=== PATIENT | male | born 2000 | race African-American/Black ===

== ENCOUNTER 2018-06-11 11:55 | Emergency (ER) | payer SELFPAY ==
--- NOTE | 2018-06-11 12:40 | RAD ---
RADIOGRAPH CHEST 1 VIEW: HISTORY: 17-year-old male with chest pain. FINDINGS: There are no air space densities, pulmonary edema, pneumothorax, or cardiomegaly. The lateral costop hrenic angles are sharp. IMPRESSION: No acute cardiopulmonary findings. doretha POS: [facility]
[2018-06-11 14:21] LABS: #Eosinphils 0.1 thou/uL (0.0-0.7); #Lymphocytes 2.4 thou/uL (1.20-3.40); #Monocytes 0.8 thou/uL (0.11-0.59); #Neutrophils 9.7 thou/uL (1.40-6.50); %Basophils 0.1 % (0.0-1.0); %Eosinophils 0.6 % (0.0-10.0); %Lymphocytes 18.6 % (28.0-48.0); %Neutrophils 74.6 % (31.0-61.0); Hemoglobin 16.9 g/dL (14.0-18.0); Mean Corpuscular Hemoglobin 30.3 pg (25.0-35.0); Mean Corpuscular Volume 89.1 fL (78.0-98.0); Platelet Count 298 thou/uL (130-400); RBC Distribution Width 11.7 % (11.5-14.5); Red Blood Cell (RBC) Count 5.56 mill/uL (4.00-5.20)
[2018-06-11 14:40] LABS: ALT (SGPT) 19 U/L (8-55); AST (SGOT) 19 U/L (10-45); Albumin 5.2 g/dL (3.5-5.0); Alkaline Phosphatase 109 U/L (Less than 750); Anion Gap 20 mmol/L (10-20); BUN (Urea Nitrogen) 21 mg/dL (8.4-21.0); Bilirubin, Total 1.4 mg/dL (0.2-1.2); Calc. Creatinine Clearance 0 mL/min (70-130); Calcium 10.8 mg/dL (7.8-10.44); Carbon Dioxide 17 mmol/L (22-29); Chloride 103 mmol/L (98-107); Estimated GFR-MDRD 85; Globulin 4.1 g/dL (2.4-3.5); Glucose 88 mg/dL (70-105); Potassium 3.8 mmol/L (3.5-5.1); Protein, Total 9.3 g/dL (6.0-8.3); Sodium 136 mmol/L (136-145)
[2018-06-11] MEDS ORDERED: Ondansetron HCl/PF 4 MG/2 ML Vial ONE (14:42)
[2018-06-11 14:43] LABS: Troponin I 0.043 ng/mL (< 0.028)
[2018-06-11] MEDS ORDERED: Ketorolac Tromethamine 30 MG/ML VIAL ONE (16:38)
[2018-06-11 16:53] LABS: Bilirubin Small (Negative); Blood, Urine Negative (Negative); Clarity CLOUDY (Clear); Glucose, Urine (Dipstick) Negative (Negative); Leukocyte Negative (Negative); Nitrite Negative (Negative); Protein, Urine (Dipstick) 300 mg/dL (Neg-Trace); Specific Gravity, Urine 1.033 (1.002-1.036); Urobilinogen 0.2 mg/dL (0.2-1.0)
[2018-06-11 16:56] LABS: RBC/HPF 0-3 HPF (0-3); Squamous Epithelial 21-50 HPF (0-3); WBC/HPF 21-50 HPF (0-3); Yeast-AUWi Flag 9.5 (0-25.0)
[2018-06-11 17:08] LABS: Pathc Cast-AUWi Flag 32.27 (0-2.49)
[2018-06-11 17:19] LABS: Bacteria/HPF 2+ HPF (None Seen); Hyaline Casts/LPF 7-10 HYALINE CAST LPF (0-3 Hyaline); Manual Microscopic Reviewed? No Path Casts Seen; Other Casts/LPF 4-6 FINELY GRAN LPF (0-3 Hyaline); Renal Epithelial None Seen HPF (0-3)
== END 2018-06-11 18:11 | disposition home or self-care (01) ==
LOC: ERS 11:55
DX: T67.3XXA Heat exhaustion, anhydrotic, initial encounter (principal); E86.0 Dehydration; F17.290 Nicotine dependence, other tobacco product, uncomplicated
CPT/HCPCS: 36415; 71045; 80053; 81003; 81015; 82553; 84484; 85025; 93005; 94760; 96361; 96374; 96375; J1885; J2405